=== PATIENT | female | born 1945 ===

== ENCOUNTER 2022-08-12 12:23 | Emergency (ER) | payer OTHER ==
[~2022-08-12] VITALS: Ht 162.6 cm; Wt 73.9 kg
[2022-08-12] MEDS ORDERED: ISOSORBIDE DINI30 MG PO (12:56)
[2022-08-12] MEDS ORDERED: GLIPIZIDE XL5 MG PO (12:57)
[2022-08-12] MEDS ORDERED: HYDRALAZINE HCL50 MG PO (12:57)
[2022-08-12] MEDS ORDERED: CARVEDILOL ER40 MG PO (12:58)
[2022-08-12] MEDS ORDERED: ALTACE10 MG PO (12:58)
[2022-08-12] MEDS ORDERED: BUMETANIDE1 MG PO (12:58)
[2022-08-12] MEDS ORDERED: FARXIGA10 MG PO (12:59)
== END 2022-08-13 08:22 | disposition home or self-care (01) ==
LOC: ER 12:23
DX: K74.60 Unspecified cirrhosis of liver (principal); R18.8 Other ascites; I85.00 Esophageal varices without bleeding; R16.1 Splenomegaly, not elsewhere classified; J90 Pleural effusion, not elsewhere classified; J98.4 Other disorders of lung; K40.20 Bilateral inguinal hernia, without obstruction or gangrene, not specified as recurrent; K57.90 Diverticulosis of intestine, part unspecified, without perforation or abscess without bleeding; E11.9 Type 2 diabetes mellitus without complications; Z79.84 Long term (current) use of oral hypoglycemic drugs; I10 Essential (primary) hypertension; Z88.6 Allergy status to analgesic agent